=== PATIENT | female | born 1965 | race Caucasian/White ===

== ENCOUNTER → 2016-07-14 | Outpatient (CLI) | payer OTHER ==
--- NOTE | 2016-07-14 11:42 | MA ---
Screening Digital Mammogram With iCAD Analysis Clinical Indications: Routine screening. Maternal grandmother was diagnosed with breast cancer in her 80s. Technique: Standard cephalocaudal projections are obtained. Digital breast tomosynthesis was performe d in the MLO projection with reconstruction at 1.0 mm slice thickness and composite MLO views reconst ructed. This examination is processed by the iCAD computer aided detection system. Comparison: July 2015, July 2014, June 2013, February 2012, December 2010, December 2009. Breast density: Type B; Scattered fibroglandular densities. Findings: CAD was reviewed. No masses, suspicious calcifications or secondary signs of malignancy are seen. There has been no significant change in the appearance of either breast. Impression: Negative mammogram. BI-RADS 1. Recommendation: Routine mammographic screening in one year. [facility] will send a result letter to the patient. Negative mammography should not preclude additional workup of a clinically suspicious finding. The patient's information is entered into a reminder system with a target due date for her next mammo gram.
== END ==
LOC: FIMAGING 07:49
DX: Z12.31 Encounter for screening mammogram for malignant neoplasm of breast (principal); Z80.3 Family history of malignant neoplasm of breast
CPT/HCPCS: G0202

== ENCOUNTER → 2017-07-15 | Outpatient (CLI) | payer OTHER | LOC: FIMAGING 07:26 | PROVIDERS: ATTEND Obstetrics & Gynecology Gynecology | DX: Z12.31 Encounter for screening mammogram for malignant neoplasm of breast (principal) ==

== ENCOUNTER → 2018-04-20 | Outpatient (CLI) | payer OTHER | LOC: BMCIMAGING 14:36 | PROVIDERS: ATTEND Orthopaedic Surgery Hand Surgery | DX: M18.12 Unilateral primary osteoarthritis of first carpometacarpal joint, left hand (principal) ==

== ENCOUNTER → 2018-05-21 | Outpatient (CLI) | payer OTHER ==
[~2018-05-21] MED LIST: GADOBUTROL 10 ML VIAL IVP ONE
== END ==
LOC: FIMAGING 14:39
PROVIDERS: ATTEND Orthopaedic Surgery
DX: M84.862 Other disorders of continuity of bone, left tibia (principal)
CPT/HCPCS: A9585

== ENCOUNTER → 2018-07-19 | Outpatient (CLI) | payer OTHER | LOC: FIMAGING 08:15 | PROVIDERS: ATTEND Internal Medicine | DX: Z12.31 Encounter for screening mammogram for malignant neoplasm of breast (principal) ==